=== PATIENT | male | born 1940 | race American Indian/Alaskan Native ===

== ENCOUNTER 2022-03-21 20:26 | Emergency (ER) | payer MEDICARE ==
[2022-03-21] MEDS ORDERED: ASPIRIN 81 MG TAB CHEW PO ONE (21:54)
[2022-03-21] MEDS ORDERED: NITROGLYCERIN 0.4 MG TAB SUBL SL ONE (21:54)
--- NOTE | 2022-03-21 22:01 | Emergency Department Report ---
ED Chest Pain HPI - General Stated Complaint: CHEST PAIN Time Seen by Provider: 03/21/22 21:40 - History of Present Illness Initial Comments: 82-year-old male with a history of hypertension who presented with chest pain that started around 6 PM progressively getting worse. Patient described the pain as sharp on the left side of the chest. He rated the pain as 6-7 over 10 in severity. Pain is worse when he tries to get up and lean forward. No fever or chills reported. No cough or palpitation noted. Patient is non-smoker or nonalcohol user. Patient has not taking any medication to help the pain. No other modifying or positive factors reported. - Related Data Previous Rx's Medication Instructions Recorded Last Taken Type Sucralfate [Carafate] 1 gm PO ACHS 30 Days #60 tablet NS 03/22/22 Unknown Rx raNITIdine HCl [Acid Control] 75 mg PO BID 30 Days #60 tab NS 03/22/22 Unknown Rx Allergies Allergy/AdvReac Type Severity Reaction Status Date / Time No Known Allergies Allergy Verified 03/21/22 22:37 Heart Score - HEART Score History: Moderately suspicious EKG: Normal Age: > 65 Risk factors: 1-2 risk factors Troponin: < normal limit HEART Score: 4 - EKG Read Time Time EKG Completed: 22:25 EKG Read Time: 22:30 - Critical Actions Critical Actions: 4-6 pts:12-16.6% risk of adverse cardiac event. Should be admitted ED Review of Systems ROS: Stated complaint: CHEST PAIN Other details as noted in HPI Comment: All other systems reviewed and negative Cardiovascular: chest pain, edema (+1 bilateral pitting edema). denies: palpitations, syncope Gastrointestinal: denies: abdominal pain, nausea ED Past Medical Hx - Past Medical History Previous Medical History?: Yes Hx Hypertension: Yes - Medications Home Medications: Home Medications Medication Instructions Recorded Confirmed Last Taken Type Sucralfate [Carafate] 1 gm PO ACHS 30 Days #60 tablet NS 03/22/22 Unknown Rx raNITIdine HCl [Acid Control] 75 mg PO BID 30 Days #60 tab NS 03/22/22 Unknown Rx ED Physical Exam - General Limitations: No Limitations General appearance: alert, in no apparent distress - Head Head exam: Present: normal inspection - Eye Eye exam: Present: normal appearance - ENT ENT exam: Present: normal exam, normal orophraynx, mucous membranes moist - Neck Neck exam: Present: normal inspection, full ROM - Respiratory Respiratory exam: Present: normal lung sounds bilaterally. Absent: respiratory distress - Cardiovascular Cardiovascular Exam: Present: regular rate, normal rhythm, normal heart sounds - GI/Abdominal GI/Abdominal exam: Present: soft, normal bowel sounds. Absent: distended, tenderness - Extremities Exam Extremities exam: Present: normal inspection, full ROM, normal capillary refill, pedal edema (+1 pitting edema) - Back Exam Back exam: Present: normal inspection - Neurological Exam Neurological exam: Present: alert, oriented X3 - Psychiatric Psychiatric exam: Present: normal affect, normal mood - Skin Skin exam: Present: warm, normal color ED Course - Reevaluation(s) Reevaluation #1: 03/21/22 22:04 here with CP--worse with leaning forward--concern for IA so will go ahead and rule out with EKG, troponin, BNP, and routine CBC, CMP and UA for any infectious process or electrolytes abnormality--given aspirin and nitro Reevaluation #2: 03/22/22 02:58 Pt reports feeling much better after treatment with GI cocktail that contain Viscus Lidocaine and Maalox. Also pt had 2 negative troponin including the initial and repeated 3 hours-- which makes this unlikely cardiac--but esophageal spasm from likely GERD--will d/c home on Rantidine -- pt will be discharged home on rantidine and close follow up-- 03/22/22 03:02 JESSICA score - Jessica Score Age > 65: (1) Yes Aspirin use within the Past 7 Days: (0) No 3 or more CAD Risk Factors: (0) No 2 or more Angina events in past 24 hrs: (0) No Known CAD with more than 50% Stenosis: (0) No Elevated Cardiac Markers: (0) No ST Deviation Greater than 0.5mm: (0) No JESSICA Score: 1 ED Medical Decision Making - Lab Data Result diagrams: 03/21/22 22:32 03/21/22 22:32 Critical care attestation.: If time is entered above; I have spent that time in minutes in the direct care of this critically ill patient, excluding procedure time. ED Disposition Clinical Impression: Non-cardiac chest pain GERD (gastroesophageal reflux disease) Qualifiers: Esophagitis presence: esophagitis presence not specified Qualified Code(s): K21.9 - Gastro-esophageal reflux disease without esophagitis Disposition: HOME / SELF CARE / HOMELESS Is pt being admited?: No Does the pt Need Aspirin: No (given already) Condition: Stable Instructions: Nonspecific Chest Pain, Adult, Food Choices for Gastroesophageal Reflux Disease, Adult, Nonspecific Chest Pain, Adult, [id number], Heartburn, [id number] Additional Instructions: Avoid spicy, fatty or heavy meal as those could worsen your symptoms Call and follow up with your doctor in the next 3-5 days for progress Call or return to ED if your symptoms worsen Prescriptions: raNITIdine HCl [Acid Control] 75 mg PO BID 30 Days #60 tab NS Sucralfate [Carafate] 1 gm PO ACHS 30 Days #60 tablet NS
--- NOTE | 2022-03-21 22:40 | XRay Report ---
CHEST 1 VIEW 03/21/2022 9:31 PM INDICATION / CLINICAL INFORMATION: CP. COMPARISON: None available. FINDINGS: SUPPORT DEVICES: None. HEART / MEDIASTINUM: No significant abnormality. LUNGS / PLEURA: Mild pulmonary vascular indistinctness. No pneumothorax. ADDITIONAL FINDINGS: No significant additional findings. IMPRESSION: 1. Mild pulmonary edema. Signer Name: Enio Durham DO Signed: 03/21/2022 10:35 PM Workstation Name: [id number]
[2022-03-21 23:12] LABS: Basophils # (Auto) 0.1 K/mm3 (0.0-0.1); Eosinophils # (Auto) 0.1 K/mm3 (0.0-0.4); Eosinophils % (Auto) 1.3 % (0.0-4.3); Hematocrit 43.2 % (35.5-45.6); Hemoglobin 13.9 gm/dl (11.8-15.2); INR 0.97 (0.87-1.13); Lymphocytes # (Auto) 1.5 K/mm3 (1.2-5.4); Lymphocytes % (Auto) 17.2 % (13.4-35.0); Mean Corpuscular HGB Conc 32 % (32-34); Mean Corpuscular Volume 92 fl (84-94); Monocytes # (Auto) 0.6 K/mm3 (0.0-0.8); Monocytes % (Auto) 6.6 % (0.0-7.3); Platelet Count 242 K/mm3 (140-440); Red Blood Count 4.71 M/mm3 (3.65-5.03); Red Cell Distribution Width 17.2 % (13.2-15.2)
[2022-03-21 23:13] LABS: Partial Thromboplastin Time 30.2 Sec. (24.2-36.6)
[2022-03-21 23:24] LABS: Alanine Aminotransferase 37 units/L (7-56); BUN/Creatinine Ratio 13; Blood Urea Nitrogen 14 mg/dL (9-20); Calcium 8.9 mg/dL (8.4-10.2); Hemolysis Index 5
[2022-03-21] MEDS ORDERED: ALUM-MAG HYDROXIDE-SIMETHICONE 200-200-20MG/5ML ORAL LIQD 30 ML PO ONE (23:47)
[2022-03-21] MEDS ORDERED: MORPHINE 2 MG/1 ML INJ IV ONE (23:48)
[2022-03-21] MEDS ORDERED: LIDOCAINE VISCOUS 2% 15 ML ORAL LIQD PO ONE (23:48)
[2022-03-22 03:28] VITALS: BP 134/86
== END 2022-03-22 03:30 | disposition home or self-care (01) ==
LOC: ED 20:26
DX: R07.9 Chest pain, unspecified (principal); K21.9 Gastro-esophageal reflux disease without esophagitis; I10 Essential (primary) hypertension
CPT/HCPCS: 36415; 71045; 80053; 83690; 83880; 84484; 85025; 85610; 85730; 93005; 96374; 99284; J2270